=== PATIENT | female | born 1945 | race Caucasian/White ===

== ENCOUNTER 2017-01-03 18:56 | Emergency (ER) | payer OTHER ==
[~2017-01-03 18:56] MED LIST: CYMBALTA60 PO; DURA100 TOP; DURA75 TOP; FLEX PO; LORCET PO; MSCONT60 PO; NORCO1 TAB PO; REST15 PO
== END 2017-01-03 19:55 | disposition home or self-care (01) ==
LOC: ER 18:56
DX: M54.5 Low back pain (principal); S32.019D Unspecified fracture of first lumbar vertebra, subsequent encounter for fracture with routine healing; F17.200 Nicotine dependence, unspecified, uncomplicated; Z90.710 Acquired absence of both cervix and uterus; Z88.0 Allergy status to penicillin; Z88.2 Allergy status to sulfonamides; Z88.7 Allergy status to serum and vaccine; Z88.8 Allergy status to other drugs, medicaments and biological substances; Z91.013 Allergy to seafood; Z79.899 Other long term (current) drug therapy
CPT/HCPCS: 96372; 99284; A9270-GY; J1170; J2930

== ENCOUNTER 2017-01-09 17:44 | Inpatient (IN) | payer OTHER ==
--- NOTE | ~2017-01-09 | DS ---
Discharge Summary [facility] [address] [place]. [address] NAME: RADHA CURIEL : 41 STATUS : DIS IN PAT#: [id number] AGE: 71 ADM/REG DATE : 01/09/17 MR#: [id number] REPORT SERV DATE: 01/27/17 DICTATED BY: JOSHUA GRACE II DATE: 01/26/17 REPORT STATUS : Draft TRANSCRIBED BY: GAGE DATE: 01/26/17 Data Collection from hospitalization DISCHARGE DIAGNOSES: 1. L1 burst fracture with T12-L1 stenosis. 2. Lower extremity weakness with anterior side pain, numbness, and tingling. 3. Osteoporosis with history of L2 and L3 kyphoplasty. 4. Chronic pain syndrome. 5. Tobacco use. 6. Peptic ulcer disease. CONSULTATIONS: None. PROCEDURES PERFORMED: Open treatment of L1 burst fracture; T12-L1 laminectomy; posterolateral arthrodesis T11-T12, T12-L1, L1-L2, and L2-L3; posterior segmental instrumentation, T11-L3; use of local autograft, allograft substitute, and bone morphogenic protein; and use of stereotactic guidance on 01/11/2017. PATHOLOGY: Bone and tissues, thoracic - lumbar - hyaline cartilage with focal degenerative changes, viable bone with trilineage hematopoiesis elements - negative for malignancy, dense fibrous connective tissue and skeletal muscle present. MEDICATIONS: Flexeril 10 mg twice a day, Valium 5 mg four times a day as needed, Prozac 20 mg daily, Dilaudid 4-8 mg every four to six hours as needed, and MS Contin 60 mg four times a day. CONDITION AT DISCHARGE: Stable. DISPOSITION: The patient was discharged home to be followed by home health care on a regular diet with activities as instructed. She would follow up with me as instructed. 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 She does have a history of osteoporosis. She reports that she had not been actively pursuing treatment of the osteoporosis. The patient had a fall on 12/29/2016 with subsequent L1 compression fracture. She had reportedly been to the emergency room three times since the fall and was currently established with Pain Management and was instructed by them to come to the emergency room this last time due to abnormal findings on an MRI. The patient reports that she has a history of compression fracture several years ago. She felt things were different at this time. She reportedly just had low back pain initially, but over the past few days prior to admission, she developed lower extremity weakness and numbness that radiated to her hips and into the anterior thighs. She was on high-dose opioids for chronic pain, but reports that since admission with the Dilaudid and the use of Dilaudid GALLERY OR MUSEUM CURATOR and IV steroids that things were now more tolerable. She was found to have an L1 burst fracture with T12-L1 stenosis. She also has osteoporosis with a history of L2 and L3 kyphoplasty. She does have chronic pain syndrome. She has extremity weakness with anterior side pain, numbness, and tingling. Treatment options were discussed and it was elected to proceed with surgical intervention. She was admitted to the hospital at this time for further evaluation and treatment. Discharge Summary [address] [address] NAME: RADHA CURIEL : 41 STATUS : DIS IN PAT#: [id number] AGE: 71 ADM/REG DATE : 01/09/17 MR#: [id number] REPORT SERV DATE: 01/27/17 DICTATED BY: JOSHUA GRACE II DATE: 01/26/17 REPORT STATUS : Draft TRANSCRIBED BY: MODGlenna DATE: 01/26/17 Upon admission, plans were being made to proceed with surgical intervention. On 01/11/2017, she was taken to the operating room where she underwent the above-mentioned procedure. She tolerated this well, and there were no complications. On postop day #1, she was evaluated by Physical Therapy. She had very difficult pain control. She had a normal respiratory effort. Over the next couple of days, she was beginning to mobilize. Discharge planning was performed. She had no focal deficits. On 01/16/2017, she was stable. She was eager to go home, but had been over-sedated. She did complain of the expected postop pain. Discharge instructions were given. Due to her improved and stable condition, she was discharged home to be followed by home health care with the above-stated instructions. Information collected by: Ankita Damon I submit the above information as my discharge summary. DILEEP/GAGE Joshua Grace II, M.D. / [id number] CC: Caroline Olivera II, DO
--- NOTE | ~2017-01-09 | HP ---
History And Physical [place] [id number] [facility] [place]. [address] NAME: RADHA CURIEL : 41 STATUS : ADM Georgie PAT#: [id number] AGE: 71 ADM/REG DATE : 01/09/17 MR#: [id number] REPORT SERV DATE: 01/10/17 DICTATED BY: JOSHUA GRACE II DATE: 01/10/17 REPORT STATUS : Draft TRANSCRIBED BY: MODGlenna DATE: 01/10/17 DATE OF ADMISSION: 01/09/2017 HISTORY OF PRESENT ILLNESS: This patient was admitted to us last night for complaints of intractable back pain, status post fall on 12/29/2016 with subsequent L1 compression fracture. Ms. Curiel had reportedly been to the ER three times since her fall and is currently established with pain management and was instructed by them to come to the ER this last time due to abnormal findings on MRI. Ms. Curiel reports that she has a history of compression fracture several years ago, but she needs this time when she failed things were different. She reportedly just had low back pain initially, but over the last few days she has developed lower extremity weakness and numbness radiating to her hips and into the anterior upper thighs. She is on high dose opioids for chronic pain, but reports that since admission with the Dilaudid and use of the Dilaudid TIPPLE GREASER and IV steroid things are more tolerable now. PAST MEDICAL HISTORY: No significant medical problems. PAST SURGICAL HISTORY: She has had L2 and L3 kyphoplasties in 2009. In the 1970s, she had a gastrectomy for an ulcer that had been present since age of 13. In 1998, she had a tummy tuck. FAMILY HISTORY: Her father had coronary artery disease, but lived into his 80s. 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 She is with two children, four grand children, and reports occasional use of alcohol and cigarettes. PHYSICAL EXAMINATION: NEURO: She is awake, alert, and oriented x3. Her lower extremity radicular symptoms seem to follow an L1-L2 dermatomal distribution. Lower extremity DTRs are 2 to 3+ in the patellas and diminished in the Achilles. Lower extremity motor strength is 5/5 except bilateral iliopsoas 4/5. RESPIRATIONS: Unlabored on room air. : Voiding. SKIN: No obvious abnormalities. ABDOMEN: Soft, nontender. MUSCULOSKELETAL: No tenderness with palpation. However, there is decreased range of motion and gait disturbance due to pain. She is moving very slowly. Lumbar spine MRI reviewed and discussed with Dr. Grace, it does show an acute L1 compression fracture with retropulsion into the central canal causing stenosis. Evidence of L2 and L3 kyphoplasties, but otherwise no significant stenosis at any other level. ASSESSMENT: Acute L1 compression fracture with retropulsion causing lumbar stenosis. Intractable back pain. Lower extremity radicular symptoms. PLAN: Discussed with Ms. Curiel continued conservative care with medications and bracing History And Physical [address] [address] NAME: RADHA CURIEL : 41 STATUS : ADM Georgie PAT#: [id number] AGE: 71 ADM/REG DATE : 01/09/17 MR#: [id number] REPORT SERV DATE: 01/10/17 DICTATED BY: JOSHUA GRACE II DATE: 01/10/17 REPORT STATUS : Draft TRANSCRIBED BY: GAGE DATE: 01/10/17 versus doing another kyphoplasty versus actually doing a laminectomy with a fusion because of the stenosis and given her lower extremity symptoms. She would like to have more time to think about it due to caring for her elderly mother and the time off that she would have to take from that, and she would also like to discuss it with her further. She will let us know later today what her decision is. Continue Dilaudid TIPPLE GREASER for now and will courtesy notify her pain management provider of admission. DICTATED BY: Jordyn Clay RP/GAGE Joshua Grace II, M.D. / [id number] CC: Caroline Olivera II, DO
--- NOTE | ~2017-01-09 | OP ---
Record Of Operation [facility] [address] [place]. [address] NAME: RADHA CURIEL : 41 STATUS : ADM Georgie PAT#: [id number] AGE: 71 ADM/REG DATE : 01/09/17 MR#: [id number] REPORT SERV DATE: 01/12/17 DICTATED BY: JOSHUA GRACE II DATE: 01/12/17 REPORT STATUS : Draft TRANSCRIBED BY: MODL DATE: 01/12/17 DATE OF PROCEDURE: 01/11/2017 PREOPERATIVE DIAGNOSES: 1. L1 burst fracture with T12-L1 stenosis. 2. Lower extremity weakness with anterior side pain, numbness, and tingling. 3. Osteoporosis with history of L2 and L3 kyphoplasty. 4. Chronic pain syndrome. POSTOPERATIVE DIAGNOSES: 1. L1 burst fracture with T12-L1 stenosis. 2. Lower extremity weakness with anterior side pain, numbness, and tingling. 3. Osteoporosis with history of L2 and L3 kyphoplasty. 4. Chronic pain syndrome. PROCEDURE: 1. Open treatment of L1 burst fracture. 2. T12-L1 laminectomy. 3. Posterolateral arthrodesis, T11-T12, T12-L1, L1-L2, and L2-L3. 4. Posterior segmental instrumentation, T11 to L3. 5. Use of local autograft, allograft substitute, and bone morphogenic protein. 6. Use of stereotactic guidance. SURGEON: Joshua Grace M.D. FLUIDS: 1200 mL LR. ESTIMATED BLOOD LOSS: 75 mL. DRAINS: One drain. COMPLICATIONS: None. ANTIBIOTIC: Preoperatively. IMPLANTS: Alphatec. 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 She reports that she has not been actively pursuing treatment of the osteoporosis. We discussed the pros and cons of surgery. She had significant retropulsion of bone at T12-L1 from the fracture. I did not believe kyphoplasty was indicated. We discussed the risks and benefits of the surgery. DESCRIPTION OF PROCEDURE: After informed consent was obtained, the patient was brought to the operating room at her request, and general anesthesia was achieved. She was placed in the prone position and the back was prepped and draped in a sterile fashion. The Record Of Operation [facility] [address] [place]. [address] NAME: RADHA CURIEL : 41 STATUS : ADM Georgie PAT#: [id number] AGE: 71 ADM/REG DATE : 01/09/17 MR#: [id number] REPORT SERV DATE: 01/12/17 DICTATED BY: JOSHUA GRACE II DATE: 01/12/17 REPORT STATUS : Draft TRANSCRIBED BY: GAGE DATE: 01/12/17 stereotactic spinal pin was placed into the right iliac crest followed by completion of the intraoperative CT scan. Stereotactic guidance was then used significantly throughout the case. At this point, the incision was made at T12-L1 and the minimally invasive quadrant retractor was placed. Next, the laminectomy was performed at T12-L1. The facet was now also removed at T12-L1. This allowed decompression of the central canal. Next, the [place] elevator was used to assist with tamping the retropulsion of bone away from the anterior sac. Irrigation was now performed. At this point, the stereotactic guidance was used for a minimally invasive placement of the pedicle screws into T11 and T12 and then also a screw in the L1 on the left. We were then able to successfully place the pedicle screws into L2 and L3, although, again there was cement there from the previous kyphoplasties. We were able to successfully place screws, but we had to place slightly shorter screws. The bone was soft as anticipated. Next, on the right side, we then made two slightly larger incisions and screws placed into T11, T12, L2, and L3. The purpose of the larger incisions was to access the facets. The facet capsules were now removed at T11-T12, and T12-L1. We also were able to expose the facets at L1-2 and L2-3. At this point, the repeat CT scan confirmed acceptable placement of the implants. Next, the decortication was performed of the facets at T11-T12, T12-L1, L1-L2, and L2-L3. Local autograft, allograft substitute, and bone morphogenic protein were placed along the decorticated surfaces. At this point, the deep drain was placed on the left. Please also note we placed bone graft materials on the left also at T12-L1. A deep drain was placed on the left. The rods were now delivered and final tightening was performed. A standard closure was performed and the patient was then extubated and transferred to PACU in stable condition. JJ/MODL Joshua Grace II, M.D. / [id number] CC: Caroline Olivera II, DO Gregory Ball, M.D.
[2017-01-09 17:43] LABS: BASOPHILS 0.2 %; BASOPHILS ABSOLUTE 0.03 10/3/uL (0.0-0.16); EOSINOPHILS 3.7 %; EOSINOPHILS ABSOLUTE 0.47 10/3/uL (0.0-0.53); HEMATOCRIT 40.4 % (36.0-48.0); HEMOGLOBIN 13.3 g/dL (12.0-16.0); IMMATURE GRANULOCYTES 0.4 %; IMMATURE GRANULOCYTES ABSOLUTE 0.05 10/3/uL (0.0-0.11); LYMPHOCYTES 20.5 %; LYMPHOCYTES ABSOLUTE 2.61 10/3/uL (0.67-4.30); MEAN CORPUS HGB CONC 32.9 g/dL (32.0-36.0); MEAN CORPUSCULAR HEMOGLOB 29.7 pg (26.0-34.0); MEAN PLATELET VOLUME 9.3 fL (9.2-13.0); MONOCYTES 8.1 %; MONOCYTES ABSOLUTE 1.03 10/3/uL (0.21-1.20); NEUTROPHILS 67.1 %; NEUTROPHILS ABSOLUTE 8.55 10/3/uL (2.02-8.40); RBC DISTRIBUTION WIDTH 14.4 % (12.0-16.0); RED CELL COUNT 4.48 10/6/uL (4.0-5.6); WHITE BLOOD CELLS 12.7 10/3/uL (4.5-10.5)
[2017-01-09 17:44] LABS: MANUAL DIFF NO %; MEAN CORPUSCULAR VOLUME 90.2 fL (80-100); PLATELET COUNT 410 10/3/uL (150-400)
[2017-01-09 17:56] LABS: CALCIUM, SERUM 8.8 MG/DL (8.5-10.4); CHLORIDE, SERUM 104 MMOL/L (96-112); CO2 (CARBON DIOXIDE) 29 MMOL/L (24-34); CREATININE 0.76 MG/DL (0.55-1.02); GFR AFRICAN AMERICAN 90 ML/MIN (>=60); GFR NON AFRICAN AMERICAN 78 ML/MIN (>=60); GLUCOSE, SERUM 97 MG/DL (60-99); POTASSIUM, SERUM 4.2 MMOL/L (3.5-5.3); SODIUM, SERUM 139 MMOL/L (135-148)
[2017-01-09 17:57] LABS: BUN (BLOOD UREA NITROGEN) 24 MG/DL (6-23)
[2017-01-09] MEDS ORDERED: MSCONT60 PO (18:26)
[2017-01-09] MEDS ORDERED: NORCO1 TAB PO (18:27)
[2017-01-09] MEDS ORDERED: FLEX PO (18:27)
[2017-01-09] MEDS ORDERED: ALEVE220 MG PO (18:27)
[2017-01-09] MEDS ORDERED: PROZAC PO (18:27)
[2017-01-11 05:33] LABS: HEMATOCRIT 37.6 % (36.0-48.0); HEMOGLOBIN 12.4 g/dL (12.0-16.0)
[2017-01-16] MEDS ORDERED: V5 PO (15:38)
[2017-01-16] MEDS ORDERED: MSCONT60 PO (15:40)
[2017-01-16] MEDS ORDERED: DIL4TAB PO (15:41)
== END 2017-01-16 17:53 | disposition home or self-care (01) | DRG 458 ==
LOC: ER 17:44 → 3SO 18:52
PROVIDERS: Nurse Practitioner Acute Care; Nurse Practitioner Family
PROC: 0QS004Z Reposition Lumbar Vertebra with Internal Fixation Device, Open Approach (ICD-10-PCS; principal; 2017-01-09)
PROC: 0RG6071 Fusion of Thoracic Vertebral Joint with Autologous Tissue Substitute, Posterior Approach, Posterior Column, Open Approach (ICD-10-PCS; 2017-01-09)
PROC: 0RGA071 Fusion of Thoracolumbar Vertebral Joint with Autologous Tissue Substitute, Posterior Approach, Posterior Column, Open Approach (ICD-10-PCS; 2017-01-09)
PROC: 0SG1071 Fusion of 2 or more Lumbar Vertebral Joints with Autologous Tissue Substitute, Posterior Approach, Posterior Column, Open Approach (ICD-10-PCS; 2017-01-09)
PROC: 4A11X4G Monitoring of Peripheral Nervous Electrical Activity, Intraoperative, External Approach (ICD-10-PCS; 2017-01-09)
DX: M80.08XA Age-related osteoporosis with current pathological fracture, vertebra(e), initial encounter for fracture (principal); G89.4 Chronic pain syndrome; S39.92XA Unspecified injury of lower back, initial encounter; K80.80 Other cholelithiasis without obstruction
CPT/HCPCS: 72148; 72170; 80048; 82962; 85014; 85018; 85025; 88304; 88311; 93005; 96374; 97116-GP; 97161-GP; 97530-GP; 99285; A9270-GY; C1713; C1769; J0360; J0690; J0735; J1170; J2250; J2370; J2405; J2710; J3010; J3370